=== PATIENT | male | born 1965 | race Caucasian/White ===

== ENCOUNTER → 2018-04-02 | Outpatient (CLI) | payer OTHER ==
[~2018-04-02] MED LIST: IOPAMIDOL 370 MG/ML 200 ML INFUS..BTL INJ ONE; SODIUM CHLORIDE 0.9% 100 ML ONE
[2018-04-02 09:22] LABS: BASOPHILS # (AUTO) 0.1 (0.0-0.1); EOSINOPHILS # (AUTO) 0.2 (0.0-0.4); EOSINOPHILS % 3.1 % (0.0-6.0); HEMATOCRIT 40.3 % (38.2-49.6); HEMOGLOBIN 14.4 g/dL (14.0-18.0); LYMPHOCYTES # (AUTO) 2.1 (1.0-3.2); LYMPHOCYTES % 35.4 % (18.0-39.1); MEAN CORPUSCULAR HGB CONC 35.7 g/dL (31-35); MEAN CORPUSCULAR VOLUME 86.9 fL (81-99); MONOCYTES # (AUTO) 0.5 (0.2-0.8); MONOCYTES % 8.9 % (4.4-11.3); NEUTROPHILS % 51.4 % (38.7-80.0); PLATELET COUNT 235 x10e3/uL (140-360); RED BLOOD COUNT 4.64 x10e6/uL (4.3-5.7); RED CELL DISTRIBUTION WIDTH 12.3 % (11.7-14.4)
[2018-04-02 09:26] LABS: ALANINE AMINOTRANSFERASE 35 IU/L (0-55); ALBUMIN 3.9 g/dL (3.5-5.0); ALBUMIN/GLOBULIN RATIO 1.1 (0.8-2.0); ALKALINE PHOSPHATASE 62 IU/L (40-150); BLOOD UREA NITROGEN 7 mg/dL (7-26); BUN/CREATININE RATIO 8 (6-25); CALCIUM 9.8 mg/dL (8.4-10.2); CARBON DIOXIDE 25 mmol/L (22-29); CHLORIDE 107 mmol/L (98-107); CHOL/HDL RATIO 4.2 (3.9-4.7); CHOLESTEROL 166 MD/DL (0-199); CREATININE, SERUM 0.85 mg/dL (0.72-1.25); EST GLOMERULAR FILTRATION RATE > 60 ML/MIN (60-); GLUCOSE 111 mg/dL (74-118); HDL CHOLESTEROL 40 MG/DL (40-60); LDL CHOLESTEROL 85 MG/DL (60-130); SODIUM 141 mmol/L (136-145); TRIGLYCERIDES 205 MG/DL (0-149)
--- NOTE | 2018-04-02 11:17 | Diagnostic Imaging Report ---
PROCEDURE: CT ANGIOGRAPHY CHEST WITH CONTRAST COMPARISON: None. INDICATIONS: THORACIC AORTIC ECTASIA TECHNIQUE: Multidetector CT scanning of the chest was performed from the level of the thoracic inlet to the upper abdomen before and after the intravenous administration of 100cc of Isovue 370. Coronal and sagittal multiplanar reformations were obtained. FINDINGS: Vessels: The ascending aorta measures 4.1 cm in greatest transverse diameter at the level of the main pulmonary artery. The arch and descending thoracic aorta are normal. The thoracic aorta is tortuous. No dissection flap or contour irregularity is visualized. No atherosclerotic calcifications. Lungs: The lungs are well inflated and clear. No filling defects are identified within the pulmonary arteries. Airways: The major airways are clear. Pleura: There is no evidence of pleural effusion or pneumothorax. Heart and mediastinum: The heart and the mediastinum are normal. Abdomen: The visualized parts of the upper abdomen are unremarkable. Bones and soft tissues: The thoracic skeleton is normal for age. The soft tissues are unremarkable. IMPRESSION: Ectasia of the thoracic aorta, without evidence of aneurysm or dissection. No acute abnormality of the chest. Dictated by: Adan Ribeiro M.D. on 04/02/2018 at 11:18 Electronically approved by: Adan Ribeiro M.D. on 04/02/2018 at 11:18
--- NOTE | 2018-04-02 11:31 | Diagnostic Imaging Report ---
PROCEDURE:CTA ABDOMEN WITH CONTRAST COMPARISON:None. INDICATIONS:THORACIC AORTIC ECTASIA TECHNIQUE: Multi-detector CT technology with Dose Reduction was employed. Images were obtained after the administration of 100 cc of Isovue-370 intravenously. For optimization of anatomic evaluation, multiplanar and volume rendering reconstructions were performed. Advanced 3-D off-line postprocessing were performed on a dedicated stand-alone workstation under the direct supervision of the interpreting physician. DLP: 757.3 mGy-cm FINDINGS: Vessels: No atherosclerotic calcifications. No aneurysmal dilation. No dissection flap. Liver: No focal mass. Normal parenchyma. Biliary: No intra-hepatic or extra-hepatic duct dilation. Normal gallbladder. Spleen: No focal mass. Pancreas: Normal parenchyma. No main pancreatic duct dilation. No focal mass. No peripancreatic soft tissue inflammatory changes. Adrenal Glands: Fat-containing right adrenal nodule. Left adrenal nodule. Kidneys: No focal mass. Normal parenchyma. No obstructing calculi. No hydronephrosis. No perinephric soft tissue inflammatory changes. GI: Moderate amount of retained feces limits intraluminal evaluation of the colon. The stomach is normal. The visualized portions of the small bowel and colon are unremarkable. The appendix not visualized. Peritoneum/Retroperitoneum: No pneumoperitoneum. No drainable fluid collection. Musculoskeletal: Degenerative changes of the lumbar spine. CONCLUSION: No acute abnormality of the abdomen. Dictated by: Adan Ribeiro M.D. on 04/02/2018 at 11:33 Electronically approved by: Adan Ribeiro M.D. on 04/02/2018 at 11:33
== END ==
LOC: CT 08:32
PROVIDERS: ATTEND Internal Medicine Cardiovascular Disease
DX: I77.810 Thoracic aortic ectasia (principal)
CPT/HCPCS: 36415; 71275; 74175; 80053; 80061; 85025; J7050; Q9967